=== PATIENT | female | born 1975 | race Two or more races ===

== ENCOUNTER 2016-06-11 18:52 | Emergency (ER) | payer OTHER ==
[~2016-06-11] VITALS: Ht 309.9 cm; Wt 74.8 kg
[~2016-06-11 18:52] MED LIST: CETI10TA22 PO; CLON0.5T PO; CYCL10TA2 PO; FLUO40CA9 PO; MULT1TAB52 PO; NAPR220T70 PO; PNV1TABL12 PO
[2016-06-11 19:00] VITALS: BP 132/70
--- NOTE | 2016-06-11 20:00 | PHYS DOC ---
General Chief Complaint: VAGINAL BLEEDING Stated Complaint: VAGINAL BLEED/CLOTTING Time Seen by MD: 19:55 Source: patient Problems: History of Present Illness Initial Comments Patient here with friend for vaginal bleeding. 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 She said that she is currently on her period now. She denies chance of . She says she passed nickel and a dime sized clot yesterday , which were not worrisome, but this morning when she woke up she had copious bleeding in her tampon and about her bedclothes. She said the bleeding seems to have gotten better, that she did pass a small clot about the size of half dollar about 10:00 this morning. She's had only spotting the remainder of the day. She says the spotting and small clots are typical of her menstrual periods , but large bleeding this morning was unusual for her. She's had no distinct fever or chills with this. There is no runny nose or sore throat. Is no chest pain or shortness of breath. No nausea or vomiting. She does have crampy abdominal discomfort which she says is consistent with her periods, is not acutely changed or different. No change in bowel or bladder habits. She has no other vaginal discharge. No focal extremity or neurologic complaints. Patient's really done nothing at home for this other than: Nurse hotline, told her to come to the ER. There's no other increased or decreasing factors noted. Patient' s past medical history is remarkable for factor V Leiden deficiency. She also has asthma, anxiety, and PTSD. She had gestational diabetes but is followed by primary care, and says her A1c is always pretty good. She says she was diagnosed recently with uterine fibroids and has a gynecology follow-up scheduled for June. She says she's had ovarian cysts in the past, apparently had the right tube removed and says the left one is clamped. She is a nonsmoker and an occasional social user of ethanol. Allergies: Coded Allergies: Sulfa (Sulfonamide Antibiotics) (Verified Allergy, Intermediate, Rash, ) erythromycin base (Verified Allergy, Intermediate, Rash, 07/13/13) oxycodone (Verified Allergy, Intermediate, Hives, 07/13/13) acetaminophen (Verified Allergy, Mild, Itching, 07/13/13) hydrocodone (Verified Allergy, Mild, Itching, 07/13/13) sertraline (Verified Allergy, Unknown, Hives, 07/13/13) Past Medical History Medical History: asthma, other Surgical History: other Psychosocial History: anxiety, post traumatic stress Social History Smoker: non-smoker Alcohol: occasionally Review of Systems All Other Systems: Reviewed and Negative Physical Exam General Appearance: WD/WN, no apparent distress Neck: full range of motion, supple Respiratory: lungs clear, normal breath sounds, no respiratory distress Cardiovascular: regular rate, rhythm, no edema Gastrointestinal: non tender, soft, no organomegaly Back: no CVA tenderness, no vertebral tenderness Extremities: non-tender, normal inspection, no pedal edema Neurologic/Psychiatric: alert, normal mood/affect, oriented x 3 Skin: normal color Lymphatic: no adenopathy Comments Generally this is a well-developed well-nourished female in no acute distress. Vitals are as noted. Pertinent findings on physical exam shows the chest to be clear. Cardiac vascular exam shows regular rate and rhythm without murmur. The abdomen is soft and nontender without mass or organomegaly. There is no perineal findings. Back shows no CVA tenderness. Extremities are clear. Pelvic exam shows normal external female genitalia. The vault is clear. The os is small and closed with just a small drop of blood at the os. There is no other lesions and no active bleeding seen. Neurologic exam shows the patient awake alert oriented and cooperative with exam. Remainder of physical exam is clinically unremarkable. Orders, Labs, Meds Old charts notes several prior ER visits for chest pain, muscular skeletal strain, strep, vaginal bleeding and , and back pain. Labs today are clinically unremarkable. Pelvic ultrasound is unremarkable per radiology. There is specifically no mention of any uterine fibroids at this time. 2125 Patient resting comfortably in the ED. I discussed with the patient and her friend the uncertain cause of her excessive vaginal bleeding. Fortunately, she does not appear to be actively bleeding at this time. She said she had a history of fibroids which may cause some excessive bleeding, but none are seen on ultrasound at this time. I suggested to her that she is hemodynamically stable and not actively bleeding, don't think there is anything more to do today. We certainly would have her follow-up with the canvassing manager whom she's been referred Isabella part. She says she is actually try to call tomorrow to make an appointment as soon as possible, and she is encouraged in this. She voices understanding the need to follow-up with gynecology referral or return to the ER sooner as needed if worsen anyway. She seems very reassured by her conversation. She looks well, in no acute discomfort distress, okay for discharge home at this time with her friend. SILVIA NAM MD Jun 11, 2016 20:00
[2016-06-11 20:06] LABS: BASO % 0 % (0-3); EOS # 0.2 x10^3/uL (0.0-0.7); EOS % 3 % (0-3); HEMATOCRIT 39.4 % (36.0-47.0); HEMOGLOBIN 13.6 g/dL (12.0-15.5); LYMPH # 1.8 x10^3/uL (1.0-4.8); LYMPH % 23 % (24-48); MEAN CORPUSCULAR HEMOGLOBIN 29 pg (25-35); MEAN CORPUSCULAR HGB CONC 35 g/dL (31-37); MEAN CORPUSCULAR VOLUME 85 fL (79-100); MONO # 0.5 x10^3/uL (0.0-1.1); MONO % 6 % (0-9); NEUT # 5.3 x10^3uL (1.8-7.7); NEUT % 68 % (31-73); PLATELET COUNT 206 x10^3/uL (140-400); RED BLOOD COUNT 4.66 x10^6/uL (3.50-5.40); RED CELL DISTRIBUTION WIDTH 13.9 % (11.5-14.5); WHITE BLOOD COUNT 7.9 x10^3/uL (4.0-11.0)
[2016-06-11 20:13] LABS: BACTERIA,URINE 0 /HPF (0-FEW); BILIRUBIN,URINE NEG (NEG); CLARITY,URINE CLEAR; COLOR,URINE YELLOW; GLUCOSE,URINE NEG (NEG); NITRITE,URINE NEG (NEG); SQUAMOUS EPITHELIAL CELL,UR OCC /LPF; UROBILINOGEN,URINE 0.2 mg/dL (0.2 mg/dL); WBC,URINE OCC /HPF (0-4)
[2016-06-11 20:14] LABS: AMORPHOUS SEDIMENT,UR PRESENT /HPF
[2016-06-11 20:16] LABS: ALBUMIN 3.8 g/dL (3.4-5.0); ALBUMIN/GLOBULIN RATIO 1.1 (1.0-1.7); CALCIUM 8.6 mg/dL (8.5-10.1); CREATININE 0.9 mg/dL (0.6-1.0); GFR 69.3; POTASSIUM 3.4 mmol/L (3.5-5.1); TOTAL BILIRUBIN 0.2 mg/dL (0.2-1.0); TOTAL PROTEIN 7.3 g/dL (6.4-8.2)
--- NOTE | 2016-06-11 21:20 | RAD ---
PROCEDURE Pelvic ultrasound HISTORY Heavy vaginal bleeding. COMPARISON None FINDINGS Transabdominal scan Limited visualization of the adnexa and uterus Endovaginal scan Uterus measures 7.1 cm longitudinal by 4.0 cm AP by 6.2 cm wide. Endometrial stripe measures 3 millimeters. Right ovary measures 2.8 cm long axis with small follicular cysts and positive blood flow. Left ovary measures 2.9 cm long axis with positive blood flow. No evidence of free fluid. IMPRESSION Unremarkable pelvic ultrasound. Electronically signed by: Que Blackman MD (Jun 11, 2016 21:18:20)
[2016-06-11 21:44] LABS: U PREG PATIENT NEGATIVE (NEG)
== END 2016-06-11 21:45 | disposition home or self-care (01) ==
LOC: ER 18:52
DX: N92.0 Excessive and frequent menstruation with regular cycle (principal); R10.9 Unspecified abdominal pain; J45.909 Unspecified asthma, uncomplicated; F43.10 Post-traumatic stress disorder, unspecified; D68.2 Hereditary deficiency of other clotting factors; Z88.2 Allergy status to sulfonamides; Z88.1 Allergy status to other antibiotic agents; Z88.6 Allergy status to analgesic agent; Z88.8 Allergy status to other drugs, medicaments and biological substances
CPT/HCPCS: 36415; 76830; 76856; 80053; 81001; 81025; 85027; 85610; 99285-25